=== PATIENT | female | born 1990 | race Caucasian/White ===

== ENCOUNTER 2018-01-26 04:59 | Emergency (ER) | payer OTHER ==
[2018-01-26] MEDS ORDERED: chlordiazePOXIDE 25 MG CAP PO ONE (05:35)
[2018-01-26] MEDS ORDERED: ONDANSETRON DISINTEGRATING 4 MG TAB PO ONE (05:35)
--- NOTE | 2018-01-26 05:40 | EDPHY ---
H & P Stated Complaint: anxiety/ SOB, CP Time Seen by Provider: 01/26/18 05:12 HPI/ROS: HPI The patient presents with chest pain and anxiety. Yesterday, she was on a drinking binge having about 5-6 beers throughout the course of the day. She has been drinking heavily for the last several days as well. Then she awoke this morning and felt anxious with palpitations and a sternal pleuritic chest pain which has been intermittent. This is causing her to feel short of breath. She has had chest pains intermittently for the last 1 month, though this is the most severe episode. She has been using Ativan 1-2 mg a day that she got off of friend as well. She says she has been in therapy for her alcohol bingeing and is not sure what caused her to relapse.. REVIEW OF SYSTEMS Constitutional: No fever, no chills. Eyes: No discharge. ENT: No sore throat. Cardiovascular: No chest pain, no palpitations. Respiratory: No cough, no shortness of breath. Gastrointestinal: No abdominal pain, no vomiting. Genitourinary: No hematuria. Musculoskeletal: No back pain. Skin: No rashes. Neurological: No headache. PMHx: Healthy Soc Hx: History of alcohol abuse, illicit benzodiazepine use PHYSICAL General Appearance: Alert, anxious appearing Eyes: Pupils equal and round no pallor or injection ENT, Mouth: Mucous membranes moist Respiratory: There are no retractions, lungs are clear to auscultation Cardiovascular: Regular rate and rhythm Gastrointestinal: Abdomen is soft and non-tender, no masses, bowel sounds normal Neurological: A&O, moves all extremities, tongue wag present, no hand tremor Skin: Warm and dry, no rashes Musculoskeletal: Neck is supple non tender Extremities: symmetrical, full range of motion Psychiatric: Patient is oriented X 3, there is no agitation Source: Patient Exam Limitations: No limitations - Personal History LMP (Females 10-55): 8-14 Days Ago Current Tetanus Diphtheria and Acellular Pertussis (TDAP): Yes - Medical/Surgical History Hx Asthma: No Hx Chronic Respiratory Disease: No Hx Diabetes: No Hx Cardiac Disease: No Hx Renal Disease: No Hx Cirrhosis: No Hx Alcoholism: No Hx Splenectomy or Spleen Trauma: No - Social History Smoking Status: Never smoked Constitutional: Initial Vital Signs Temperature (C) 36.5 C 01/26/18 05:04 Heart Rate 71 04/30/18 05:04 Respiratory Rate 20 01/26/18 05:04 Blood Pressure 114/74 01/26/18 05:04 O2 Sat (%) 95 01/26/18 05:04 O2 Delivery Mode Room Air Allergies/Adverse Reactions: minocycline [Minocycline] Allergy (Severe, Verified 01/26/18 05:03) Medical Decision Making Differential Diagnosis: This is a 27-year-old female, coming off of an alcohol binge drinking 5-6 alcoholic drinks daily at least for the last several days, also for the last 1 month using 1-2 mg of Ativan daily, now feeling anxious with chest pain and mild shortness of breath. Differential diagnosis includes alcohol and benzodiazepine withdrawal, costochondritis, anxiety attack, pericarditis. In the emergency department, I gave the patient Librium and Zofran with improvement in her symptoms. EKG and chest x-ray were unremarkable. She felt much better and felt well enough to go home. I suspect she is experiencing alcohol and benzodiazepine withdrawal. I will give her course of Librium. She is entirely clear that she cannot take Ativan or drink alcohol while taking this medication. She has a therapist appointment in a few days and her situation can be reassessed then. She will be discharged home. - Data Points Medications Given: Discontinued Medications Chlordiazepoxide (Librium 25 Mg Prepack#6) 1 btl TAKEHOME EDNOW ONE Stop: 01/26/18 06:21 Last Admin: 01/26/18 06:41 Dose: 1 btl Chlordiazepoxide HCl (Librium) 25 mg PO EDNOW ONE Stop: 01/26/18 05:36 Last Admin: 01/26/18 05:42 Dose: 25 mg Ondansetron HCl (Zofran Odt) 4 mg PO EDNOW ONE Stop: 01/26/18 05:36 Last Admin: 01/26/18 05:42 Dose: 4 mg Departure - Departure Disposition: Home, Routine, Self-Care Clinical Impression: Alcohol withdrawal, Benzodiazepine withdrawal, Chest pain Condition: Good Instructions: Chlordiazepoxide/Clidinium (By mouth), Benzodiazepine Abuse (ED) , Alcohol Withdrawal (ED) Additional Instructions: Please follow-up with your therapist this week as planned. You need to stop using all alcohol and benzodiazepines while taking Librium. You can take 1 tab every 12 hr as needed for symptoms of alcohol withdrawal. You should return to the emergency department if your worse in any way. If you're need of a primary care doctor, I have listed 1 below for you to call for a follow-up appointment. Referrals: Migel Watts MD [[facility] [place] - As per Instructions
--- NOTE | 2018-01-26 05:51 | CPEKG ---
Heart Rate: 68 RR Interval: 882 P-R Interval: 128 QRSD Interval: 94 QT Interval: 384 QTC Interval: 409 P Cornelius: 4 QRS Cornelius: 49 T Wave Cornelius: 27 EKG Severity - OTHERWISE NORMAL ECG - EKG Impression: SINUS ARRHYTHMIA, RATE 55-82 Electronically Signed By: Deandra Sanchez 27-Jan-2018 06:58:58
[2018-01-26] MEDS ORDERED: CHLORDIAZEPOXIDE 25MG PREPK#6 BTL TAKEHOME ONE (06:20)
[2018-01-26 06:48] VITALS: BP 112/74
== END 2018-01-26 06:49 | disposition home or self-care (01) ==
DX: R07.9 Chest pain, unspecified (principal); F10.239 Alcohol dependence with withdrawal, unspecified; F13.239 Sedative, hypnotic or anxiolytic dependence with withdrawal, unspecified

== ENCOUNTER 2018-06-09 03:32 | Emergency (ER) | payer SELFPAY ==
[2018-06-09] MEDS ORDERED: chlordiazePOXIDE 25 MG CAP PO ONE (03:45)
--- NOTE | 2018-06-09 03:49 | EDPHY ---
H & P Stated Complaint: HEAVY ETOH FOR PAST 3 DAYS, NAUSE VOITING, NO DETOX Time Seen by Provider: 06/09/18 03:38 HPI/ROS: Chief Complaint: Alcohol withdrawal HPI: 28-year-old woman with a history of binge drinking is presenting after being on a binge for the last 2 days. Patient states she has been drinking wine and vodka. She is feeling that her heart is racing and feeling tremulous. She has had multiple episodes of similar in the past. She is not interested in going to detox at this time. She has sober some medications help with her symptoms. She has been in alcohol treatment and AA in the past. Last time that this occurred was about a month ago. She is feeling her heart racing. No shortness of breath. She is having some nausea with rare vomiting. Mild abdominal pain. No cough. No shortness of breath. No fevers or chills. ROS: 10 systems were reviewed and were negative except those elements noted in the HPI. PMH: Chronic alcohol abuse Social History: No smoking, occasional heavy alcohol, no recreational drug use Family History: non-contributory Physical Exam: Gen: Awake, Alert, No Distress, mildly tremulous HEENT: Nose: no rhinorrhea Eyes: PERRLA, EOMI Mouth: Moist mucosa Neck: Supple, no JVD Chest: nontender, lungs clear to auscultation Heart: S1, S2 normal, no murmur Abd: Soft, non-tender, no guarding Back: no CVA tenderness, no midline tenderness Ext: no edema, non-tender Skin: no rash Neuro: CN II-XII intact, Sensation grossly intact, Strength 5/5 in bilateral upper and lower extremities - Personal History LMP (Females 10-55): 15-21 Days Ago Current Tetanus/Diphtheria Vaccine: Yes Current Tetanus Diphtheria and Acellular Pertussis (TDAP): Yes - Medical/Surgical History Hx Asthma: No Hx Chronic Respiratory Disease: No Hx Diabetes: No Hx Cardiac Disease: No Hx Renal Disease: No Hx Cirrhosis: No Hx Alcoholism: Yes Hx HIV/AIDS: No Hx Splenectomy or Spleen Trauma: No Other PMH: ETOH ABUSE - Social History Smoking Status: Never smoked Constitutional: Initial Vital Signs Temperature (C) 36.6 C 06/09/18 03:34 Heart Rate 84 06/09/18 03:34 Respiratory Rate 18 06/09/18 03:34 Blood Pressure 119/78 06/09/18 03:34 O2 Sat (%) 96 06/09/18 03:34 O2 Delivery Mode Room Air Allergies/Adverse Reactions: minocycline [Minocycline] Allergy (Severe, Verified 06/09/18 03:37) Sulfa (Sulfonamide Antibiotics) Allergy (Verified 06/09/18 03:37) Home Medications: Medication Instructions Recorded NK [No Known Home Meds] 05/14/18 Medical Decision Making ED Course/Re-evaluation: Patient is feeling much improved. She is currently without complaint. She is asking to go home. Will discharge her with Librium prepack. She has been cautioned not drink alcohol or use benzodiazepines and she is using Librium. She is not interested in going to detox at this time. I encouraged her to follow up with her therapist in to get back into an alcohol recovery program. - Data Points Medications Given: Discontinued Medications Chlordiazepoxide HCl (Librium) 25 mg PO EDNOW ONE Stop: 06/09/18 03:46 Last Admin: 06/09/18 03:48 Dose: 25 mg Departure - Departure Disposition: Home, Routine, Self-Care Clinical Impression: Alcohol abuse, Alcohol withdrawal Condition: Good Instructions: Chlordiazepoxide (By mouth), Alcohol Withdrawal (ED) Additional Instructions: Please seek help to discontinue drinking alcohol. Do not take the Librium medication if you're drinking alcohol or using other sedative type medications. Return to the emergency department for worsening withdrawal symptoms, chest pain , worsening shortness of breath, seizures, or any other concerns. Referrals: Severiano Adams MD [[facility] [place] Primary Care Provider] - As per Instructions
[2018-06-09 04:47] VITALS: BP 112/76
[2018-06-09] MEDS ORDERED: CHLORDIAZEPOXIDE 25MG PREPK#6 BTL TAKEHOME ONE (04:55)
== END 2018-06-09 05:02 | disposition home or self-care (01) ==
DX: F10.239 Alcohol dependence with withdrawal, unspecified (principal)

== ENCOUNTER 2018-10-29 13:18 | Emergency (ER) | payer SELFPAY | END 2018-10-29 13:30 | disposition left against medical advice (07) | DX: Z53.21 Procedure and treatment not carried out due to patient leaving prior to being seen by health care provider (principal) ==

== ENCOUNTER 2018-10-30 23:42 | Emergency (ER) | payer SELFPAY ==
[2018-10-30] MEDS ORDERED: ONDANSETRON 4 MG/2 ML VIAL IVP ONE (23:48)
[2018-10-30] MEDS ORDERED: NS 1,000 ML IV ONE (23:48)
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
[2018-10-31 00:01] LABS: PLATELET COUNT 285 10^3/uL (150-400)
[2018-10-31 02:12] VITALS: BP 94/67
== END 2018-10-31 03:12 ==
LOC: EDUNIT#
DX: F10.920 Alcohol use, unspecified with intoxication, uncomplicated (principal); Y90.8 Blood alcohol level of 240 mg/100 ml or more
CPT/HCPCS: 96374; G0480; J2405